=== PATIENT | female | born 2000 | race African-American/Black ===

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

== ENCOUNTER 2022-11-28 20:06 | Emergency (ER) | payer BC, SELFPAY ==
[2022-11-28] MEDS ORDERED: predniSONE 20 MG TAB ONE (21:17)
[2022-11-28] MEDS ORDERED: Famotidine 20 MG TAB ONE (21:17)
[2022-11-28] MEDS ORDERED: hydrOXYzine 25 MG TAB ONE (21:18)
== END 2022-11-28 22:24 | disposition home or self-care (01) ==
LOC: ERS 20:06
DX: T78.40XA Allergy, unspecified, initial encounter (principal); I10 Essential (primary) hypertension; J45.909 Unspecified asthma, uncomplicated; Z79.899 Other long term (current) drug therapy
CPT/HCPCS: 87081; 87430; 99283; J7512